=== PATIENT | female | born 1970 | race Caucasian/White ===

== ENCOUNTER 2018-07-03 11:04 | Emergency (ER) | payer OTHER ==
[~2018-07-03] VITALS: Ht 167.6 cm; Wt 74.8 kg
[2018-07-03 11:11] VITALS: BP 131/77; Ht 167.6 cm; Wt 74.8 kg
== END 2018-07-03 13:49 | disposition home or self-care (01) ==
LOC: ED 11:04
DX: S50.11XA Contusion of right forearm, initial encounter (principal); W22.8XXA Striking against or struck by other objects, initial encounter; Y93.89 Activity, other specified; Y92.89 Other specified places as the place of occurrence of the external cause; Y99.8 Other external cause status

== ENCOUNTER 2020-06-14 17:15 | Emergency (ER) | payer OTHER ==
[~2020-06-14] VITALS: Ht 170.2 cm; Wt 80.7 kg
[2020-06-14 17:39] VITALS: BP 134/79; Ht 170.2 cm; Wt 80.7 kg
== END 2020-06-14 19:32 | disposition home or self-care (01) ==
LOC: ED 17:15
DX: L03.115 Cellulitis of right lower limb (principal); M06.9 Rheumatoid arthritis, unspecified
CPT/HCPCS: J1885

== ENCOUNTER 2020-06-22 15:10 | Emergency (ER) | payer OTHER ==
[~2020-06-22] VITALS: Ht 170.2 cm; Wt 72.6 kg
[2020-06-22 15:13] VITALS: Ht 170.2 cm; Wt 72.6 kg
[2020-06-22 19:15] VITALS: BP 123/76
== END 2020-06-22 19:15 | disposition home or self-care (01) ==
LOC: ED 15:10
DX: M79.89 Other specified soft tissue disorders (principal); M06.9 Rheumatoid arthritis, unspecified; F17.210 Nicotine dependence, cigarettes, uncomplicated
CPT/HCPCS: 99406